=== PATIENT | female | born 1995 | race Caucasian/White ===

== ENCOUNTER 2017-05-10 14:35 | Emergency (ER) | payer OTHER ==
[~2017-05-10] VITALS: Ht 154.9 cm; Wt 80.0 kg
[2017-05-10 14:38] VITALS: Ht 154.9 cm; Wt 80.0 kg
[2017-05-10] MEDS ORDERED: LIDOCAINE/MYLANTA 40 ML BTL PO STA ×2 (15:11→16:59)
[2017-05-10] MEDS ORDERED: HYDR-906 PO (17:02)
[2017-05-10] MEDS ORDERED: RANI150T9 PO (17:02)
[2017-05-10] MEDS ORDERED: LIDO20SO19 MM (17:02)
--- NOTE | 2017-05-10 17:05 | ERD ---
ER Documentation Chief Complaint Chief Complaint pt bib family with c/o abd pain and vomiting since this am HPI This 21-year-old female complains of epigastric burning pain onset this morning with 2 episodes of vomiting with a slight amount of blood streak in the second 1. No gross hematemesis or coffee-ground emesis. No recent melena. Patient denies any history of reflux or other GI related complaints. No diarrhea no fever no chest pain shortness of breath ROS All systems reviewed and are negative except as per history of present illness. Medications Home Meds Active Scripts Hydrocodone/Acetaminophen ([place] 5-325 Tablet) 1 Each Tablet, 1 TAB PO Q6H Y for PAIN, #7 TAB Prov:MARIOLA LANDIN DO 05/10/17 Lidocaine (Lidocaine Viscous) 100 Ml Soln, 15 ML MM BEFORE MEALS Y for qid, #120 Prov:DARLINE LANDINSTSABIS A. DO 05/10/17 Ranitidine Hcl* (Zantac*) 150 Mg Tablet, 150 MG PO BID Y for EPIGASTRIC PAIN, # 30 TAB Prov:MARIOLA LANDIN DO 05/10/17 Allergies Allergies: Coded Allergies: No Known Allergy (Unverified , 05/10/17) PMhx/Soc Medical and Surgical Hx: pt denies Medical Hx, pt denies Surgical Hx Hx Alcohol Use: No Hx Substance Use: No Hx Tobacco Use: No Smoking Status: Never smoker FmHx Family History: No coronary disease Physical Exam Vitals Vital Signs Date Time Temp Pulse Resp B/P Pulse Ox O2 Delivery O2 Flow Rate FiO2 05/10/17 14:38 98.3 104 16 121/75 98 Physical Exam Const: Well-developed, well-nourished Head: Atraumatic, normocephalic Eyes: Normal Conjunctiva, PERRLA, EOMI, normal sclera, no nystagmus ENT: Normal External Ears, Nose and Mouth, moist mucus membranes. Neck: Full range of motion. No meningismus, no lymphadenopathy. Resp: Clear to auscultation bilaterally, no wheezing, rhonchi, rales Cardio: Regular rate and rhythm, no murmurs, S1 S2 present Abd: Soft, epigastric tenderness, non distended. Normal bowel sounds, no guarding or rebound, no pulsitile abdominal masses or bruits Skin: No petechiae or rashes, no ecchymosis , no maculopapular rash Back: No midline or flank tenderness Ext: No cyanosis, or edema, FROM x 4, normal inspection, neurovascularly intact x 4 Neur: Awake and alert, STR 5/5 x 4, sensation intact x 4, no focal findings, cerebellum intact Psych: Normal Mood and Affect Results 24 hrs Current Medications Medications (Trade) Dose Ordered Sig/Samir Route PRN Reason Start Time Stop Time Status Last Admin Dose Admin Miscellaneous Medication (Gi Cocktail (2)) 40 ml ONCE STAT PO 05/10/17 15:11 05/10/17 15:12 DC 05/10/17 15:15 Miscellaneous Medication (Gi Cocktail (2)) 40 ml ONCE STAT PO 05/10/17 16:59 05/10/17 17:00 DC Procedures/MDM GI cocktail is given pain went from an 8 out of 10 to a 4 out of 10. The patient has gastritis/peptic ulcer disease advised her on proper diet care and follow-up. She had a slight amount of blood streaks she said was probably less than half a teaspoon. Do not feel she needs GI workup or NG tube etc. at this time Departure Diagnosis: Primary Impression: Gastritis Gastritis type: unspecified gastritis Chronicity: acute Gastritis bleeding : with bleeding Qualified Code: K29.01 - Acute gastritis with hemorrhage, unspecified gastritis type Additional Impression: Abdominal pain Abdominal location: epigastric Qualified Code: R10.13 - Epigastric pain Condition: Stable Patient Instructions: Gastritis Vs. Ulcer MARIOLA LANDIN DO May 10, 2017 17:05
== END 2017-05-10 17:05 | disposition home or self-care (01) ==
LOC: FTE 14:35
DX: K29.01 Acute gastritis with bleeding (principal)
CPT/HCPCS: Z7502; Z7610; 99283